=== PATIENT | male | born 1985 | race Two or more races ===

== ENCOUNTER 2018-10-13 03:59 | Emergency (ER) | payer SELFPAY ==
[~2018-10-13] VITALS: Ht 172.7 cm; Wt 56.7 kg
[2018-10-13 04:10] VITALS: Ht 172.7 cm; Wt 56.7 kg
[2018-10-13 04:35] VITALS: BP 128/82
== END 2018-10-13 04:35 | disposition other institution (70) ==
LOC: ED 03:59
DX: S81.812A Laceration without foreign body, left lower leg, initial encounter (principal); F15.20 Other stimulant dependence, uncomplicated; X58.XXXA Exposure to other specified factors, initial encounter; Y93.89 Activity, other specified; Y92.89 Other specified places as the place of occurrence of the external cause; Y99.8 Other external cause status
CPT/HCPCS: 90715

== ENCOUNTER 2018-10-13 03:59 | Emergency (ER) | payer OTHER | END 2018-10-13 04:35 | disposition other institution (70) | LOC: ED 03:59 | DX: Z02.89 Encounter for other administrative examinations (principal) ==